=== PATIENT | male | born 1995 | race Caucasian/White ===

== ENCOUNTER 2023-03-25 21:25 | Inpatient (IN) | payer SELFPAY ==
[~2023-03-25] VITALS: Ht 170.2 cm; Wt 82.6 kg
[2023-03-25] MEDS ORDERED: LORAZEPAM 1MG TABLET PO ONE (21:45)
[2023-03-25 22:04] LABS: BASOPHILS % 0.6 % (0.0-2.0); EOSINOPHILS % 0.4 % (0.0-5.0); HEMATOCRIT. 37.8 % (42.0-52.0); HEMOGLOBIN. 13.1 g/dL (14.0-18.0); LYMPHOCYTES % 12.6 % (20.0-50.0); MEAN CORPUSCULAR HGB CONC 34.7 g/dL (31.0-37.0); MEAN CORPUSCULAR VOLUME 95.2 fL (80.0-94.0); MEAN PLATELET VOLUME 8.4 fl (7.4-10.4); MONOCYTES % 10.8 % (2.0-8.0); NEUTROPHILS % 75.6 % (40.0-76.0); PLATELET 255 x1000/uL (130-400); RED BLOOD CELL COUNT 3.98 mill/uL (4.7-6.1); RED CELL DISTRIBUTION WIDTH 14.2 % (11.6-14.6)
[2023-03-25 22:17] LABS: ALANINE AMINOTRANSFERASE 26 IU/L (10-49); ALBUMIN 4.5 g/dL (3.2-4.8); ASPARTATE AMINOTRANSFERASE 48 IU/L (<34); BILIRUBIN TOTAL 0.8 mg/dL (0.1-1.0); CALCIUM 9.5 mg/dL (8.7-10.4); CARBON DIOXIDE 23 mEq/L (21-32); CHLORIDE 103 mEq/L (98-107); CREATININE 0.8 mg/dL (0.6-1.3); ETHANOL BLOOD < 10 mg/dL (<10); GLUCOSE 98 mg/dL (70-105); POTASSIUM 3.7 mEq/L (3.5-5.1); SODIUM 136 mEq/L (136-145); UREA NITROGEN BLOOD 14 mg/dL (9-23)
[2023-03-25] MEDS ORDERED: LORAZEPAM 1MG TABLET PO NR (23:45)
[2023-03-26] MEDS ORDERED: SODIUM CHLORIDE 0.9% 1,000 ML IV ONE
[2023-03-26] MEDS ORDERED: LEVETIRACETAM 500MG PREMIX 100 ML IV ONE (01:30)
[2023-03-26] MEDS ORDERED: LORAZEPAM 1MG TABLET PO ONE (01:45)
[2023-03-26] MEDS ORDERED: ONDANSETRON HCL 4MG/2ML INJ IV PRN (03:00)
[2023-03-26] MEDS ORDERED: ACETAMINOPHEN 325MG TABLET PO PRN ×2 (03:00)
[2023-03-26] MEDS ORDERED: CHLORDIAZEPOXIDE 25MG CAPSULE PO PRN (03:00)
[2023-03-26] MEDS ORDERED: CLONIDINE 0.1MG TABLET PO PRN (03:00)
[2023-03-26 04:00] VITALS: BP 128/93; PULSE 99; RESP 18; TEMP 97.5
[2023-03-26] MEDS ORDERED: MVI, ADULT NO.1 10 ML, FOLIC ACID 1 MG, THIAMINE HCL 100 MG in SODIUM CHLORIDE 0.9% 1,0... IV SCH ×4 (04:30)
[2023-03-26 06:39] VITALS: BP 128/93; PULSE 99; RESP 18; TEMP 97.5
[2023-03-26 08:15] VITALS: BP_SYST 121; BP_SYST 123; BP_DIAS 70; PULSE 73; RESP 18; TEMP 88
[2023-03-26 09:21] LABS: BASOPHILS % 0.9 % (0.0-2.0); EOSINOPHILS % 2.9 % (0.0-5.0); HEMATOCRIT. 35.5 % (42.0-52.0); LYMPHOCYTES % 27.6 % (20.0-50.0); MEAN CORPUSCULAR HGB CONC 33.9 g/dL (31.0-37.0); MEAN CORPUSCULAR VOLUME 97.3 fL (80.0-94.0); MEAN PLATELET VOLUME 8.6 fl (7.4-10.4); MONOCYTES % 12.3 % (2.0-8.0); NEUTROPHILS % 56.3 % (40.0-76.0); PLATELET 224 x1000/uL (130-400); RED BLOOD CELL COUNT 3.65 mill/uL (4.7-6.1); RED CELL DISTRIBUTION WIDTH 13.7 % (11.6-14.6); WHITE BLOOD COUNT 5.6 x1000/uL (4.5-11.0)
[2023-03-26] MEDS: MULTIVITAMINS,THER W-MINERALS TABLET PO SCH (09:39)
[2023-03-26] MEDS: THIAMINE HCL 100MG TABLET PO SCH (09:40)
[2023-03-26] MEDS: LORAZEPAM 1MG TABLET PO PRN ×4 (09:40→22:07)
[2023-03-26] MEDS: FOLIC ACID 1MG TABLET PO SCH (09:40)
[2023-03-26 10:58] LABS: FERRITIN 628 ng/mL (22-322); FOLIC ACID (FOLATE) SERUM > 20.00 ng/mL (>5.38); VITAMIN B12 SERUM 983 pg/mL (211-911)
[2023-03-26 11:53] LABS: HEMATOCRIT. 34.3 % (42.0-52.0); HEMOGLOBIN. 11.9 g/dL (14.0-18.0); LYMPHOCYTES % 23.4 % (20.0-50.0); MEAN CORPUSCULAR HEMOGLOBIN 33.1 pg (28.0-32.0); MEAN CORPUSCULAR HGB CONC 34.8 g/dL (31.0-37.0); MEAN PLATELET VOLUME 8.5 fl (7.4-10.4); MONOCYTES % 12.3 % (2.0-8.0); NEUTROPHILS % 61.3 % (40.0-76.0); PLATELET 228 x1000/uL (130-400); RED BLOOD CELL COUNT 3.61 mill/uL (4.7-6.1); RED CELL DISTRIBUTION WIDTH 13.7 % (11.6-14.6); WHITE BLOOD COUNT 5.6 x1000/uL (4.5-11.0)
[2023-03-26 12:11] LABS: ALANINE AMINOTRANSFERASE 19 IU/L (10-49); ALBUMIN 3.6 g/dL (3.2-4.8); ASPARTATE AMINOTRANSFERASE 42 IU/L (<34); BILIRUBIN TOTAL 0.9 mg/dL (0.1-1.0); CALCIUM 8.5 mg/dL (8.7-10.4); CARBON DIOXIDE 20 mEq/L (21-32); CHLORIDE 108 mEq/L (98-107); CHOLESTEROL 139 mg/dL (<200); CREATINE KINASE 321 IU/L (46-171); CREATININE 0.7 mg/dL (0.6-1.3); GLUCOSE 83 mg/dL (70-105); HDL CHOLESTEROL 59 mg/dL (>55); IRON 111 ug/dL (65-175); LDL CHOLESTEROL 60 mg/dL (5-100); POTASSIUM 3.9 mEq/L (3.5-5.1); PROTEIN TOTAL 6.4 g/dL (6.0-8.3); SODIUM 140 mEq/L (136-145); T4 FREE 1.27 ng/dL (0.89-1.76); THYROID STIMULATING HORMONE 2.44 uIU/mL (0.55-4.78); TOTAL IRON BINDING CAPACITY 169 ug/dl (250-425); TRIGLYCERIDE 73 mg/dL (0-150); UREA NITROGEN BLOOD 7 mg/dL (9-23)
[2023-03-26 12:28] LABS: CALCIUM 8.8 mg/dL (8.7-10.4); CARBON DIOXIDE 24 mEq/L (21-32); CHLORIDE 108 mEq/L (98-107); CREATINE KINASE 300 IU/L (46-171); CREATININE 0.7 mg/dL (0.6-1.3); GLUCOSE 112 mg/dL (70-105); POTASSIUM 3.4 mEq/L (3.5-5.1); SODIUM 141 mEq/L (136-145); UREA NITROGEN BLOOD 7 mg/dL (9-23)
[2023-03-26 12:30] LABS: CLARITY URINE CLEAR (CLEAR); COLOR URINE YELLOW (YELLOW); GLUCOSE URINE NEGATIVE (NEGATIVE); KETONES URINE NEGATIVE (NEGATIVE); LEUKOCYTE ESTERASE URINE NEGATIVE (NEGATIVE); NITRITE URINE NEGATIVE (NEGATIVE); OCCULT BLOOD URINE NEGATIVE (NEGATIVE); PH URINE 5.5 (4.5-8.0); PROTEIN URINE NEGATIVE (NEGATIVE); SPECIFIC GRAVITY URINE 1.017 (1.005-1.030)
[2023-03-26 13:40] VITALS: BP 100/52; PULSE 75; RESP 20; TEMP 98
[2023-03-26 14:21] LABS: *AMPHETAMINES SCREEN URINE NEGATIVE (NEGATIVE); *BARBITURATES SCREEN URINE NEGATIVE (NEGATIVE); *BENZODIAZEPINES SCREEN URINE NEGATIVE (NEGATIVE); *COCAINE SCREEN URINE NEGATIVE (NEGATIVE); CANNABINOID URINE SCREEN PRESUMPTIVE POSITIVE (NEGATIVE); ECSTASY MDMA SCREEN URINE NEGATIVE (NEGATIVE); METHADONE URINE SCREEN Neg (NEGATIVE); OPIATES URINE SCREEN NEGATIVE (NEGATIVE); PHENCYCLIDINE URINE SCREEN NEGATIVE (NEGATIVE)
[2023-03-26 15:05] VITALS: BP 104/77; RESP 18; TEMP 98
[2023-03-26] MEDS ORDERED: POTASSIUM CHLORIDE INJ 40 MEQ in DEXT 5% WATER 500 ML IV NR (17:00)
[2023-03-26 18:21] LABS: CREATINE KINASE 265 IU/L (46-171)
[2023-03-26 20:00] VITALS: BP 139/88; PULSE 97; RESP 19; TEMP 97.5
[2023-03-26] MEDS ORDERED: FAMOTIDINE 20MG TABLET PO SCH (21:00)
[2023-03-27] MEDS: LORAZEPAM 1MG TABLET PO PRN (05:34)
[2023-03-27 07:18] LABS: EOSINOPHILS % 2.6 % (0.0-5.0); HEMOGLOBIN. 11.7 g/dL (14.0-18.0); LYMPHOCYTES % 25.9 % (20.0-50.0); MEAN CORPUSCULAR HGB CONC 34.3 g/dL (31.0-37.0); MEAN PLATELET VOLUME 8.4 fl (7.4-10.4); MONOCYTES % 9.9 % (2.0-8.0); NEUTROPHILS % 60.6 % (40.0-76.0); PLATELET 211 x1000/uL (130-400); RED BLOOD CELL COUNT 3.54 mill/uL (4.7-6.1); RED CELL DISTRIBUTION WIDTH 13.9 % (11.6-14.6); WHITE BLOOD COUNT 5.9 x1000/uL (4.5-11.0)
[2023-03-27 07:51] LABS: CALCIUM 8.9 mg/dL (8.7-10.4); CARBON DIOXIDE 27 mEq/L (21-32); CHLORIDE 109 mEq/L (98-107); CREATINE KINASE 197 IU/L (46-171); CREATININE 0.6 mg/dL (0.6-1.3); GLUCOSE 101 mg/dL (70-105); POTASSIUM 4.2 mEq/L (3.5-5.1); SODIUM 142 mEq/L (136-145)
[2023-03-27 07:52] LABS: UREA NITROGEN BLOOD < 5 mg/dL (9-23)
[2023-03-27] MEDS ORDERED: FOLI-43 PO (09:11)
[2023-03-27] MEDS ORDERED: THIA100T72 PO (09:11)
[2023-03-27] MEDS: THIAMINE HCL 100MG TABLET PO SCH (10:04)
[2023-03-27] MEDS: FOLIC ACID 1MG TABLET PO SCH (10:05)
[2023-03-27] MEDS: MULTIVITAMINS,THER W-MINERALS TABLET PO SCH (10:05)
[2023-03-27 10:44] VITALS: BP 136/88; PULSE 72; TEMP 98.1; O2SAT 100
== END 2023-03-27 11:26 | disposition home or self-care (01) | DRG 53 ==
LOC: ER 21:25 → MICUSO 03-26 01:40 → 6WST 03-26 04:38
PROVIDERS: ADMIT Preventive Medicine Clinical Informatics; ATTEND Preventive Medicine Clinical Informatics
DX: R56.9 Unspecified convulsions (principal); D75.89 Other specified diseases of blood and blood-forming organs; F10.139 Alcohol abuse with withdrawal, unspecified; F41.9 Anxiety disorder, unspecified; G47.00 Insomnia, unspecified; I10 Essential (primary) hypertension; Z82.49 Family history of ischemic heart disease and other diseases of the circulatory system; Z87.891 Personal history of nicotine dependence; Z91.148 Patient's other noncompliance with medication regimen for other reason
CPT/HCPCS: 36415; 80048; 80053; 80061; 80305; 80320; 81003; 82550; 82607; 82728; 82746; 83540; 83550; 83605; 84439; 84443; 85025; 93005; 99285; J1953; J3411; J3480; J3490; J7030; J7060; G0480